=== PATIENT | female | born 1995 | race Caucasian/White ===

== ENCOUNTER 2016-11-18 22:05 | Emergency (ER) | payer OTHER, BC ==
[~2016-11-18] VITALS: Ht 160 cm; Wt 99.2 kg
[2016-11-18 22:08] VITALS: BP 140/81
[2016-11-18] MEDS ORDERED: ZOLOFT50 MG PO (22:32)
[2016-11-18] MEDS ORDERED: MOTRIN800 MG PO (23:18)
== END 2016-11-18 23:32 | disposition home or self-care (01) ==
LOC: EME 22:05
DX: S56.912A Strain of unspecified muscles, fascia and tendons at forearm level, left arm, initial encounter (principal); Y99.0 Civilian activity done for income or pay; Y04.8XXA Assault by other bodily force, initial encounter
CPT/HCPCS: 73090; 99281; 99283